=== PATIENT | male | born 1975 | race Caucasian/White ===

== ENCOUNTER → 2017-10-26 | Outpatient (CLI) | payer BC ==
--- NOTE | 2017-10-26 20:52 | MR ---
EXAMINATION TYPE: MR brain wo con DATE OF EXAM: 10/26/2017 8:33 PM COMPARISON: NONE HISTORY: Headaches, history of seizures Multiplanar and multispin-echo imaging of the brain was performed . The ventricles, basal cisterns and sulci overlying the cerebral convexities are within normal limits. There is no evidence for midline shift or mass effect. Acute intracranial hemorrhage or extra-axial collection is not evident. The brain parenchyma reveals no abnormal increased signal. No acute edema is identified. The paranasal sinuses and mastoid air cells are well-aerated. IMPRESSION: Unremarkable MRI of the brain.
--- NOTE | 2017-10-26 20:54 | MR ---
EXAMINATION TYPE: MR lumbar spine wo con DATE OF EXAM: 10/26/2017 8:47 PM COMPARISON: NONE HISTORY: Back pain Multiplanar, MultiSpin echo imaging of the lumbar spine was performed. L1-L2: Normal disc appearance without desiccation. No herniation, protrusion or disc bulging. No ca nal stenosis is present. Foramina are patent bilaterally. L2-L3: Normal disc appearance without desiccation. No herniation, protrusion or disc bulging. No ca nal stenosis is present. Foramina are patent bilaterally. L3-L4: Normal disc appearance without desiccation. No herniation, protrusion or disc bulging. No ca nal stenosis is present. Foramina are patent bilaterally. L4-L5: Normal disc appearance without desiccation. No herniation, protrusion or disc bulging. No ca nal stenosis is present. Foramina are patent bilaterally. L5-S1: Moderate disc desiccation. Mild posterocentral subligamentous disc herniation mildly effaces t he ventral thecal sac. No evidence for central stenosis or lateral recess stenosis. No significant fo raminal encroachment. Lumbar segments are intact. No paraspinal masses are identified. Conus medullaris has a normal appe arance. IMPRESSION: 1. 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
== END | disposition home or self-care (01) ==
LOC: RADMRIMAIN 19:24
PROVIDERS: ATTEND Psychiatry & Neurology Neurology
DX: M51.27 Other intervertebral disc displacement, lumbosacral region (principal); M51.37 Other intervertebral disc degeneration, lumbosacral region; G40.909 Epilepsy, unspecified, not intractable, without status epilepticus
CPT/HCPCS: 70551; 72148

== ENCOUNTER → 2020-12-05 | Outpatient (CLI) | payer BC ==
--- NOTE | 2020-12-06 02:28 | MR ---
EXAMINATION TYPE: MR lumbar spine wo con DATE OF EXAM: 12/05/2020 COMPARISON: None HISTORY: Chronic low back pain for 10 years that goes down both legs. Multiplanar multiecho imaging of the lumbar spine was performed without contrast. The lumbar vertebra have normal alignment. Posterior elements are intact. There is narrowing of L5-S1 disc space. There is posterior mild disc herniation at L5-S1 in the midline. There is developmentall y large spinal canal and no spinal stenosis. The lumbar nerve roots appear normal. The neuroforamina are fairly well-maintained. There is no paraspinal mass. There is no compression fracture. Sacroiliac joints are intact. IMPRESSION: Small posterior disc herniation at L5-S1. No fracture. No spinal stenosis.
== END ==
LOC: RADMRIMAIN 19:33
PROVIDERS: ATTEND Family Medicine
DX: M51.37 Other intervertebral disc degeneration, lumbosacral region (principal)
CPT/HCPCS: 72148